=== PATIENT | female | born 1955 | race Caucasian/White ===

== ENCOUNTER 2018-02-26 12:24 | Inpatient (IN) | payer OTHER ==
[~2018-02-26] VITALS: Ht 175.3 cm; Wt 88.1 kg
[~2018-02-26 12:24] MED LIST: ALPRAZOLAM0.25 M1 PO; BUPROPION XL300 M1 PO; CIPRO250 M1 PO; FLAGYL500 MG PO; NEFAZODONE HCL100 M1 PO; PANTOPRAZOLE SO20 M1 PO; PERCOCET 5-3251 EACH PO; PERCOCET 7.5-31 EACH PO
[2018-02-26 13:15] LABS: ABSOLUTE BASOPHIL COUNT 0 /CUMM (0.0-0.2); ABSOLUTE EOSINOPHIL COUNT 0.3 /CUMM (0.0-0.7); ABSOLUTE GRANULOCYTE CT 4.9 /CUMM (1.4-6.5); ABSOLUTE LYMPH COUNT 1.2 /CUMM (1.2-3.4); ABSOLUTE MONOCYTE COUNT 0.5 /CUMM (0.10-0.60); BASOPHIL % 0.2 % (0.0-2.0); EOSINOPHIL % 3.7 % (0-5); GRANULOCYTE % 70.5 % (42.2-75.2); HEMATOCRIT 40.8 % (37-47); MEAN CORPUSCULAR HGB 31.9 PG (27.0-31.0); MEAN CORPUSCULAR HGB CONC 34.3 G/DL (33.0-37.0); MEAN CORPUSCULAR VOLUME 92.9 FL (81.0-99.0); MEAN PLATELET VOLUME 8.2 FL (7.4-10.4); PLATELET COUNT 191 /CUMM (130-400); RED BLOOD CELL CT 4.39 /CUMM (4.20-5.40); WHITE BLOOD CELL COUNT 6.9 /CUMM (4.8-10.8)
--- NOTE | 2018-02-26 14:15 | ED GI/GU/ABDOMINAL COMPLAINT ---
History of Present Illness General Chief Complaint: Abdominal Pain/Flank Pain Stated Complaint: ABD PAIN Source: patient Exam Limitations: no limitations Vital Signs & Intake/Output Vital Signs & Intake/Output Vital Signs Date Time Temp Pulse Resp B/P B/P Pulse O2 O2 Flow FiO2 Mean Ox Delivery Rate 02/26 1606 97.4 69 18 109/70 96 02/26 1302 98.0 77 22 123/81 97 Allergies Coded Allergies: Sulfa (Sulfonamide Antibiotics) (Intermediate, RASH 11/10/16) Reconcile Medications Alprazolam 0.25 MG TABLET 0.5 TAB PO QPM PRN SLEEP/PANIC ATTACKS (Reported) Bupropion HCl (Bupropion XL) 300 MG TAB.ER.24H 1 TAB PO QAM DEPRESSION ( Reported) Dicyclomine HCl 10 MG CAPSULE 1 CAP PO TID PRN GI (Reported) Nefazodone HCl 100 MG TABLET 3 TAB PO QHS ANXIETY/DEPRESSION (Reported) Pantoprazole Sodium 20 MG TABLET.DR 1 TAB PO DAILY AC GI (Reported) Triage Note: PER PT CO ABD PAIN DIFFUSE ACROSS ABD SINCE AM, NO NVD HX OF GI ISSUES TOOK BENTYL WITHOUT EFFECT APPEARS UNCOMF Triage Nurses Notes Reviewed? yes Duration: constant Timing: single episode today Severity Numbers: 8 Location: epigastric Radiation: no radiation HPI: Patient is a 62-year-old female with past medical history of diverticulitis, SBO , cholecystectomy and appendectomy performed remotely also states that she had a remote history of common bile duct removal at [facility] approximate 3 years ago and history of depression who presents emergency room seen at today patient was woken up with acute onset of nausea and severe epigastric pain Patient had minimal amounts of bowel movement today of brown pellets Patient hasn't tried by mouth challenge no vomiting today denies any fevers but does have chills denies any chest pain arm pain jaw pain (Mikhail FIORE,Zane) ? N Is pt currently ? No (Erica MCCARTHY,Reagan Brian) Past History Travel History Traveled to [place] past 21 day No Medical History Any Pertinent Medical History? see below for history Neurological: NONE EENT: NONE Cardiovascular: NONE Respiratory: NONE Gastrointestinal: pancreatitis Hepatic: NONE Renal: NONE Musculoskeletal: NONE Psychiatric: NONE Endocrine: NONE Surgical History Surgical History: appendectomy, cholecystectomy, Gómez-EN-y GASTRECTOMY, CBD REMOVAL Psychosocial History What is your primary language Polish Tobacco Use: Never used Family History Hx Contributory? No (Zane Dao) Review of Systems Review of Systems Constitutional: Reports: no symptoms. EENTM: Reports: no symptoms. Respiratory: Reports: no symptoms. Cardiovascular: Reports: no symptoms. GI: Reports: see HPI, abdominal pain, nausea. Genitourinary: Reports: no symptoms. Musculoskeletal: Reports: no symptoms. Skin: Reports: no symptoms. Neurological/Psychological: Reports: no symptoms. Hematologic/Endocrine: Reports: no symptoms. Immunologic/Allergic: Reports: no symptoms. All Other Systems: Reviewed and Negative (Zane Dao) Physical Exam Physical Exam General Appearance: mild distress Head: atraumatic Eyes: Bilateral: normal appearance. Ears, Nose, Throat, Mouth: moist mucous membrane Neck: normal inspection Respiratory: normal breath sounds, no respiratory distress Cardiovascular: regular rate/rhythm Gastrointestinal: normal bowel sounds, soft, EPIGASTRIC PAIN Extremities: normal range of motion Neurologic/Psych: no motor/sensory deficits, awake Core Measures ACS in differential dx? Yes Sepsis Present: No Sepsis Focused Exam Completed? No (Zane Dao) Progress Differential Diagnosis: AAA, AMI, biliary colic, bowel obstruction, colon cancer , cholecystitis, diverticulitis, endometritis, esophageal varices, gastritis, hepatitis, hernia, hemorrhoids, ischemic bowel, inflamm bowel dis, kidney stone, ovarian cyst, ovarian torsion, pancreatitis, PID/cervicitis, peptic ulcer, PUD/ GERD, perforated viscous, SBO, UTI/pyelo Diagnostic Imaging: Viewed by Me: CT Scan. Radiology Impression: acute abnormality Initial ED EKG: NOTED MULTIPLE ARTIFACTS 60 BPM Repeat EKG: unchanged (NSR 64 BPM) Comments: PATIENT: STEVE STEELE PRESENT AGE: 62 PATIENT ACCOUNT NO: [id number] : 54 LOCATION: [facility] ORDERING PHYSICIAN: Reagan Maldonado MD SERVICE DATE: 02/26/18 EXAM TYPE: CAT - CT ABD & PELVIS W IV CONTRAST EXAMINATION: CT ABDOMEN AND PELVIS WITH CONTRAST CLINICAL INFORMATION: Left lower quadrant pain. Evaluate for diverticulitis. COMPARISON: CT abdomen and pelvis most recent prior dated 11/10/2016 TECHNIQUE: Multidetector volumetric imaging was performed of the abdomen and pelvis following IV administration of 95 mL of Optiray 320 intravenous contrast. Sagittal and coronal reformatted images were obtained on the technologist's workstation. DLP: 533.48 mGy-cm FINDINGS: LUNG BASES: The visualized lung bases are unremarkable. LIVER, GALLBLADDER, AND BILIARY TREE: Normal hepatic enhancement. No focal abnormality. Status post cholecystectomy. Postoperative changes noted at the level of the gastric antrum. Pneumobilia. PANCREAS: Unremarkable. SPLEEN: Unremarkable. ADRENAL GLANDS: Unremarkable. KIDNEYS AND URETERS: The kidneys are normal in size, shape, and attenuation. No hydronephrosis, hydroureter, or calculi seen. Tiny low-attenuation cortical foci too small to be accurately characterized. No perinephric stranding. BLADDER: Unremarkable. GASTROINTESTINAL TRACT: Mildly distended stomach filled with food material and fluid. Postoperative changes noted at the level of the gastric antrum/gastroduodenal junction. Abnormal distention of the proximal jejunum with associated small bowel fecal sign . Surgical anastomosis noted in the right mid abdomen. Zone of transition appears to be at the level of the enteroenteric anastomosis (series 602 image 39-41 and series 2 image 52). There is mild haziness of the adjacent mesentery and mild prominence of the vasa rectae (series 602 image 37) Remaining small bowel loops appear to be normal in caliber. Colonic diverticulosis. No gross evidence of acute diverticulitis. ABDOMINAL WALL: No significant hernia is appreciated. LYMPH NODES: Stable mild prominence of the precaval lymph nodes (series 2 image 26) stable periaortic lymph nodes and small mesenteric nodes. No gross lymphadenopathy. VASCULAR: Unremarkable. PELVIC VISCERA: Small amount of free fluid noted in the pelvis. Small uterus. No gross ovarian or adnexal abnormality. OSSEOUS STRUCTURES: Mild scoliosis. Degenerative changes. Postoperative changes in 4-L5 level with posterior fusion. No acute osseous abnormality. IMPRESSION: 1. Postoperative changes as detailed. 2. Partial small bowel obstruction with distended proximal jejunum demonstrating small bowel fecal sign. Zone of transition is at the enteroenteric anastomosis right mid abdomen. Haziness and edema of the adjacent mesentery with prominence of the vasa rectae. 3. Colonic diverticulosis. No evidence of acute diverticulitis. 4. Postoperative changes also noted at the level of gastric antrum. Mildly distended stomach filled with food and fluid. 5. Chronic pneumobilia compatible with postoperative changes. Finding discussed with Dr. Maldonado at 4:00 PM on 02/26/2018.. DICTATED BY: Ricardo Perez MD DATE/TIME DICTATED:02/26/181540 INDUSTRIAL MAINTENANCE INSTRUCTOR:DOLLY DATE/TIME TRANSCRIBED:02/26/181540 CONFIDENTIAL, DO NOT COPY WITHOUT APPROPRIATE AUTHORIZATION. <Electronically signed in Other Vendor System> SIGNED BY: Ricardo Perez MD 02/26/18 1609 (Zane Dao) Plan of Care: Orders Procedure Date/time Status Nothing by Mouth 02/27 B Active Admit to inpatient 02/26 1739 Active EKG 02/26 172 Active Add-on Test (ER Only) 02/26 162 Active EKG 02/26 162 Active NGT 02/26 161 Active TROPONIN LEVEL 02/26 1310 Complete URINALYSIS 02/26 1303 Complete LIPASE 02/26 1303 Complete LACTIC ACID 02/26 130 Complete COMPREHENSIVE METABOLIC PANEL 02/26 130 Complete CBC WITHOUT DIFFERENTIAL 02/26 130 Complete AMYLASE 02/26 130 Complete Current Medications Sig/Humaira Start time Last Medication Dose Stop Time Status Admin Sodium Chloride 1,000 ML BOLUS ONE 02/26 171 AC 02/26 (Normal Saline 0.9%) 02/26 181 1718 Laboratory Tests 02/26/18 1603: Lactic Acid Cancelled 02/26/18 1320: Urinalysis MOD H, Urine Color YEL, Urine Clarity HAZY H, Urine pH 7.0, Ur Specific [place] 1.015, Urine Protein NEG, Urine Ketones NEG, Urine Nitrite NEG, Urine Bilirubin NEG, Urine Urobilinogen 0.2, Ur Leukocyte Esterase NEG, Ur Microscopic SEDIMENT EXAMINED, Ur Epithelial Cells FEW, Urine Bacteria FEW H, Urine Mucus MOD H, Urine Hemoglobin NEG, Urine Glucose NEG 02/26/18 1310: Anion Gap 12, Estimated GFR > 60, BUN/Creatinine Ratio 20.0, Glucose 105 H, Lactic Acid 0.9, Calcium 9.5, Total Bilirubin 0.7, AST 14, ALT 26, Alkaline Phosphatase 109, Troponin I < 0.01, Total Protein 6.6, Albumin 4.0, Globulin 2.6 , Albumin/Globulin Ratio 1.5, Amylase 44, Lipase 80, CBC w Diff NO MAN DIFF REQ, RBC 4.39, MCV 92.9, MCH 31.9 H, MCHC 34.3, RDW 13.0, MPV 8.2, Gran % 70.5, Lymphocytes % 17.8 L, Monocytes % 7.8, Eosinophils % 3.7, Basophils % 0.2, Absolute Granulocytes 4.9, Absolute Lymphocytes 1.2, Absolute Monocytes 0.5, Absolute Eosinophils 0.3, Absolute Basophils 0 Patient after morphine was administered initially had significant improvement of pain patient currently complains of 3/10 abdominal pain, CT scan was resulted showing critical findings of small bowel structures and discussed results with patient Patient was placed nothing by mouth (Zane Dao) (Reagan Maldonado MD) Departure Departure Disposition: STILL A PATIENT Condition: Guarded Clinical Impression Primary Impression: Small bowel obstruction Referrals: El MCCARTHY,Alfredo Coats (PCP/Family) Departure Forms: Customer Survey General Discharge Information Admission Note Spoke With: Jorge MCCARTHY,Hiren Keller Documentation of Exam: Documentation of any treatments & extenuating circumstances including Concerns Regarding Discharge (functional status, medication knowledge or non-compliance, living conditions, etc.) that warrant an admission rather than observation: [ Patient requires IV pain medication IV antiemetics IV fluids surgery consultation and possible surgical intervention] (Zane Dao) PA/BIOMETRICS CONSULTANT Co-Sign Statement Statement: ED Attending supervision documentation- [X] I saw and evaluated the patient. I have also reviewed all the pertinent lab results and diagnostic results. I agree with the findings and the plan of care as documented in the PA's/BIOMETRICS CONSULTANT's documentation. [X] I have reviewed the ED Record and agree with the PA's/BIOMETRICS CONSULTANT's documentation. [] Additions or exceptions (if any) to the PAs/BIOMETRICS CONSULTANT's note and plan are summarized below: [ADMITTO SURGERY, BOWEL REST, NGT, MAYREQUIRE SURGERY] (Reagan Maldonado MD) Critical Care Note Critical Care Note Critical Care Time: 75-104 min (Zane Dao)
[2018-02-26] MEDS ORDERED: DICYCLOMINE HCL10 M1 PO (15:27)
--- NOTE | 2018-02-26 16:09 | CT SCAN REPORT ---
EXAMINATION: CT ABDOMEN AND PELVIS WITH CONTRAST CLINICAL INFORMATION: Left lower quadrant pain. Evaluate for diverticulitis. COMPARISON: CT abdomen and pelvis most recent prior dated 11/10/2016 TECHNIQUE: Multidetector volumetric imaging was performed of the abdomen and pelvis following IV administration of 95 mL of Optiray 320 intravenous contrast. Sagittal and coronal reformatted images were obtained on the technologist's workstation. DLP: 533.48 mGy-cm FINDINGS: LUNG BASES: The visualized lung bases are unremarkable. LIVER, GALLBLADDER, AND BILIARY TREE: Normal hepatic enhancement. No focal abnormality. Status post cholecystectomy. Postoperative changes noted at the level of the gastric antrum. Pneumobilia. PANCREAS: Unremarkable. SPLEEN: Unremarkable. ADRENAL GLANDS: Unremarkable. KIDNEYS AND URETERS: The kidneys are normal in size, shape, and attenuation. No hydronephrosis, hydroureter, or calculi seen. Tiny low-attenuation cortical foci too small to be accurately characterized. No perinephric stranding. BLADDER: Unremarkable. GASTROINTESTINAL TRACT: Mildly distended stomach filled with food material and fluid. Postoperative changes noted at the level of the gastric antrum/gastroduodenal junction. Abnormal distention of the proximal jejunum with associated small bowel fecal sign . Surgical anastomosis noted in the right mid abdomen. Zone of transition appears to be at the level of the enteroenteric anastomosis (series 602 image 39-41 and series 2 image 52). There is mild haziness of the adjacent mesentery and mild prominence of the vasa rectae (series 602 image 37) Remaining small bowel loops appear to be normal in caliber. Colonic diverticulosis. No gross evidence of acute diverticulitis. ABDOMINAL WALL: No significant hernia is appreciated. LYMPH NODES: Stable mild prominence of the precaval lymph nodes (series 2 image 26) stable periaortic lymph nodes and small mesenteric nodes. No gross lymphadenopathy. VASCULAR: Unremarkable. PELVIC VISCERA: Small amount of free fluid noted in the pelvis. Small uterus. No gross ovarian or adnexal abnormality. OSSEOUS STRUCTURES: Mild scoliosis. Degenerative changes. Postoperative changes in 4-L5 level with posterior fusion. No acute osseous abnormality. IMPRESSION: 1. Postoperative changes as detailed. 2. Partial small bowel obstruction with distended proximal jejunum demonstrating small bowel fecal sign. Zone of transition is at the enteroenteric anastomosis right mid abdomen. Haziness and edema of the adjacent mesentery with prominence of the vasa rectae. 3. Colonic diverticulosis. No evidence of acute diverticulitis. 4. Postoperative changes also noted at the level of gastric antrum. Mildly distended stomach filled with food and fluid. 5. Chronic pneumobilia compatible with postoperative changes. Finding discussed with Dr. Maldonado at 4:00 PM on 02/26/2018..
--- NOTE | 2018-02-26 17:31 | History & Physical ---
Maxim Sung 02/26/18 4756: General Information and HPI MD Statement: I have seen and personally examined STEVE STEELE and documented this H&P. The patient is a 62 year old F who presented with a patient stated chief complaint of [abdominal pain]. Source of Information: patient Exam Limitations: no limitations History of Present Illness: 62-year-old female presents to the ER with abdominal pain that started at 7 AM this morning she is colicky in nature, central epigastric region and occasionally radiating into the back, associated with nausea without vomiting. 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 Her abdominal pain is similar to her previous small bowel obstruction. It is moderate to severe, crampy in nature. She has not vomited. Over the past several months she has been having problems with her bowels, having bouts of constipation alternating with loose stool, and significant flatulence without belching or vomiting, associated with lower abdominal cramping pain which at times is severe. She has been seen by her nail setter for this [place] who recommended Linzess however due potential side effects, she decided not to take this. The pain became so great she had to go to the ER for treatment, CT scan was ordered which showed a small bowel obstruction and surgery was consulted for further evaluation and management. She has also had a previous ERCP was things are out of a due to her excessive flatulence and fatty mucousy stool in 2014. Allergies/Medications Allergies: Coded Allergies: Sulfa (Sulfonamide Antibiotics) (Intermediate, RASH 11/10/16) Home Med list Alprazolam 0.25 MG TABLET 0.5 TAB PO QPM PRN SLEEP/PANIC ATTACKS (Reported) Bupropion HCl (Bupropion XL) 300 MG TAB.ER.24H 1 TAB PO QAM DEPRESSION ( Reported) Dicyclomine HCl 10 MG CAPSULE 1 CAP PO TID PRN GI (Reported) Nefazodone HCl 100 MG TABLET 3 TAB PO QHS ANXIETY/DEPRESSION (Reported) Pantoprazole Sodium 20 MG TABLET.DR 1 TAB PO DAILY AC GI (Reported) Past History Travel History Traveled to [place] past 21 day No Medical History Neurological: NONE EENT: NONE Cardiovascular: NONE Respiratory: NONE Gastrointestinal: pancreatitis, small bowel obstruction Hepatic: NONE Renal: NONE Musculoskeletal: NONE Psychiatric: NONE Endocrine: NONE Surgical History Surgical History: appendectomy, cholecystectomy, Gómez-EN-y gastrojejunectomy . sphincter of OD sphincterotomy with ERCP Past Family/Social History Functional Ability ADLs Independent: dressing, eating, toileting, bathing. Review of Systems Review of Systems Constitutional: Reports: see HPI. Comments Review of systems: See HPI, all other systems negative. Constitutional: No chills fever or weight loss HEENT: No visual changes no sore throat no congestion Cardiovascular: No chest pain ,palpitation , orthopnea or ankle swelling Skin: No jaundice no rashes Respiratory: No dyspnea cough sputum or hemoptysis GI: See HPI : No dysuria no hematuria Musclulo skeletal: No back pain no neck pain, Neurologic: No numbness no confusion Psych: No stress anxiety or depression,. Heme/endocrine: No bruising no bleeding no polyuria or polydipsia Immunology: No splenectomy or history of AIDS Exam & Diagnostic Data Last 24 Hrs of Vital Signs/I&O Vital Signs Date Time Temp Pulse Resp B/P B/P Pulse O2 O2 Flow FiO2 Mean Ox Delivery Rate 02/26 1606 97.4 69 18 109/70 96 04/ 1302 98.0 77 22 123/81 97 Intake & Output 04/ 1600 04/05 0800 04/05 0000 Intake Total 10 Output Total Balance 10 Intake, IV 10 Patient 200 lb Weight Physical Exam General Appearance Alert, Oriented X3, Cooperative, Mild Distress Skin No Rashes, No Breakdown, No Significant Lesion Skin Temp/Moisture Exam: Warm/Dry Sepsis Skin Exam (color): Normal for Ethnicity HEENT Atraumatic, PERRLA, EOMI, mucous membranes dry Neck Supple, No JVD Cardiovascular Regular Rate, Normal S1, Normal S2, No Murmurs Lungs Clear to Auscultation, Normal Air Movement Abdomen Soft, well-healed right upper quadrant and midline surgical abdominal scar, minimal distention, mild tympani, no bowel sounds, tenderness in the epigastrium and midabdominal region, no significant lower abdominal tenderness Neurological Normal Gait, Normal Speech Extremities No Clubbing, No Cyanosis, No Edema, Normal Pulses, No Tenderness/ Swelling Last 24 Hrs of Labs/Chad: Laboratory Tests 02/26/18 1603: Lactic Acid Cancelled 02/26/18 1320: Urinalysis MOD H, Urine Color YEL, Urine Clarity HAZY H, Urine pH 7.0, Ur Specific [place] 1.015, Urine Protein NEG, Urine Ketones NEG, Urine Nitrite NEG, Urine Bilirubin NEG, Urine Urobilinogen 0.2, Ur Leukocyte Esterase NEG, Ur Microscopic SEDIMENT EXAMINED, Ur Epithelial Cells FEW, Urine Bacteria FEW H, Urine Mucus MOD H, Urine Hemoglobin NEG, Urine Glucose NEG 02/26/18 1310: Anion Gap 12, Estimated GFR > 60, BUN/Creatinine Ratio 20.0, Glucose 105 H, Lactic Acid 0.9, Calcium 9.5, Total Bilirubin 0.7, AST 14, ALT 26, Alkaline Phosphatase 109, Troponin I < 0.01, Total Protein 6.6, Albumin 4.0, Globulin 2.6 , Albumin/Globulin Ratio 1.5, Amylase 44, Lipase 80, CBC w Diff NO MAN DIFF REQ, RBC 4.39, MCV 92.9, MCH 31.9 H, MCHC 34.3, RDW 13.0, MPV 8.2, Gran % 70.5, Lymphocytes % 17.8 L, Monocytes % 7.8, Eosinophils % 3.7, Basophils % 0.2, Absolute Granulocytes 4.9, Absolute Lymphocytes 1.2, Absolute Monocytes 0.5, Absolute Eosinophils 0.3, Absolute Basophils 0 Diagnostic Data Other Results PATIENT: STEVE STEELE PRESENT AGE: 62 PATIENT ACCOUNT NO: [id number] : 54 LOCATION: [facility] ORDERING PHYSICIAN: Reagan Maldonado MD SERVICE DATE: 02/26/18 EXAM TYPE: CAT - CT ABD & PELVIS W IV CONTRAST EXAMINATION: CT ABDOMEN AND PELVIS WITH CONTRAST CLINICAL INFORMATION: Left lower quadrant pain. Evaluate for diverticulitis. COMPARISON: CT abdomen and pelvis most recent prior dated 11/10/2016 TECHNIQUE: Multidetector volumetric imaging was performed of the abdomen and pelvis following IV administration of 95 mL of Optiray 320 intravenous contrast. Sagittal and coronal reformatted images were obtained on the technologist's workstation. DLP: 533.48 mGy-cm FINDINGS: LUNG BASES: The visualized lung bases are unremarkable. LIVER, GALLBLADDER, AND BILIARY TREE: Normal hepatic enhancement. No focal abnormality. Status post cholecystectomy. Postoperative changes noted at the level of the gastric antrum. Pneumobilia. PANCREAS: Unremarkable. SPLEEN: Unremarkable. ADRENAL GLANDS: Unremarkable. KIDNEYS AND URETERS: The kidneys are normal in size, shape, and attenuation. No hydronephrosis, hydroureter, or calculi seen. Tiny low-attenuation cortical foci too small to be accurately characterized. No perinephric stranding. BLADDER: Unremarkable. GASTROINTESTINAL TRACT: Mildly distended stomach filled with food material and fluid. Postoperative changes noted at the level of the gastric antrum/gastroduodenal junction. Abnormal distention of the proximal jejunum with associated small bowel fecal sign . Surgical anastomosis noted in the right mid abdomen. Zone of transition appears to be at the level of the enteroenteric anastomosis (series 602 image 39-41 and series 2 image 52). There is mild haziness of the adjacent mesentery and mild prominence of the vasa rectae (series 602 image 37) Remaining small bowel loops appear to be normal in caliber. Colonic diverticulosis. No gross evidence of acute diverticulitis. ABDOMINAL WALL: No significant hernia is appreciated. LYMPH NODES: Stable mild prominence of the precaval lymph nodes (series 2 image 26) stable periaortic lymph nodes and small mesenteric nodes. No gross lymphadenopathy. VASCULAR: Unremarkable. PELVIC VISCERA: Small amount of free fluid noted in the pelvis. Small uterus. No gross ovarian or adnexal abnormality. OSSEOUS STRUCTURES: Mild scoliosis. Degenerative changes. Postoperative changes in 4-L5 level with posterior fusion. No acute osseous abnormality. IMPRESSION: 1. Postoperative changes as detailed. 2. Partial small bowel obstruction with distended proximal jejunum demonstrating small bowel fecal sign. Zone of transition is at the enteroenteric anastomosis right mid abdomen. Haziness and edema of the adjacent mesentery with prominence of the vasa rectae. 3. Colonic diverticulosis. No evidence of acute diverticulitis. 4. Postoperative changes also noted at the level of gastric antrum. Mildly distended stomach filled with food and fluid. 5. Chronic pneumobilia compatible with postoperative changes. Finding discussed with Dr. Maldonado at 4:00 PM on 02/26/2018.. DICTATED BY: Ricardo Perez MD DATE/TIME DICTATED:04/051540 IT DIRECTOR:DOLLY DATE/TIME TRANSCRIBED:02/26/181540 Assessment/Plan Assessment: Patient has a small bowel obstruction She requires admission to the hospital, nothing by mouth, IV fluids, IV antiemetics, pain medication as needed, bowel rest, NG tube, ambulation, monitoring for return of bowel function. If she does not improve, she could potentially require surgical intervention for lysis of adhesion. Discussed with Dr. Patel. As Ranked By This Provider Problem List: 1. Small bowel obstruction Core Measures/Misc (08/10) Acute Coronary Syndrome ACS Diagnosis: No Congestive Heart Failure Congestive Heart Failure Diagnosis No Cerebrovascular Accident CVA/TIA Diagnosis: No VTE (View Protocol) VTE Risk Factors Age>40 No Mechanical VTE Prophylaxis d/t N/A MechProphylax Ordered No VTE Pharm Prophylaxis d/t NA PharmProphylax ordered Sepsis (View protocol) Sepsis Present: No Hiren Patel MD 02/27/18 0847: Attending MD Review Statement Attending Statement Attending MD Statement: examined this patient, discuss w/resident/PA/MASTER BAKER, reviewed images Attending Assessment/Plan: 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 PLan ng tube decompression followed by gastrograffin instillation.
--- NOTE | 2018-02-26 17:43 | Admission Core Measures ---
Acute Coronary Syndrome (CM) ACS Core Measures Acute Coronary Syndrome Diagnosis No Congestive Heart Failure (NEW) CHF Core Measures Congestive Heart Failure Diagnosis No Cerebrovascular Accident (NEW) CVA Core Measures CVA/TIA Diagnosis No Venous Thromboembolism VTE Core Pancho (View Protocol) VTE Risk Factors Age>40 No Mechanical VTE Prophylaxis d/t N/A MechProphylax Ordered No VTE Pharm Prophylaxis d/t NA PharmProphylax ordered Problem List As ranked by this Provider includes Assessment & Plan 1. Small bowel obstruction HOME MEDS Home Med List Alprazolam 0.25 MG TABLET 0.5 TAB PO QPM PRN SLEEP/PANIC ATTACKS (Reported) Bupropion HCl (Bupropion XL) 300 MG TAB.ER.24H 1 TAB PO QAM DEPRESSION ( Reported) Dicyclomine HCl 10 MG CAPSULE 1 CAP PO TID PRN GI (Reported) Nefazodone HCl 100 MG TABLET 3 TAB PO QHS ANXIETY/DEPRESSION (Reported) Pantoprazole Sodium 20 MG TABLET.DR 1 TAB PO DAILY AC GI (Reported)
[2018-02-26 22:35] VITALS: BP 124/68
[2018-02-27 01:00] VITALS: BP 110/68
[2018-02-27 03:02] VITALS: BP 108/62
[2018-02-27 05:05] VITALS: BP 104/68
[2018-02-27 07:49] VITALS: BP 100/60
[2018-02-27 08:06] LABS: ABSOLUTE BASOPHIL COUNT 0 /CUMM (0.0-0.2); ABSOLUTE EOSINOPHIL COUNT 0.2 /CUMM (0.0-0.7); ABSOLUTE GRANULOCYTE CT 4.2 /CUMM (1.4-6.5); ABSOLUTE LYMPH COUNT 1.4 /CUMM (1.2-3.4); ABSOLUTE MONOCYTE COUNT 0.7 /CUMM (0.10-0.60); BASOPHIL % 0.4 % (0.0-2.0); EOSINOPHIL % 3.7 % (0-5); GRANULOCYTE % 63.6 % (42.2-75.2); HEMATOCRIT 40.3 % (37-47); MEAN CORPUSCULAR HGB 32.3 PG (27.0-31.0); MEAN PLATELET VOLUME 8.7 FL (7.4-10.4); PLATELET COUNT 171 /CUMM (130-400); RBC DISTRIBUTION WIDTH 13.1 % (11.5-14.5); RED BLOOD CELL CT 4.24 /CUMM (4.20-5.40); WHITE BLOOD CELL COUNT 6.6 /CUMM (4.8-10.8)
--- NOTE | 2018-02-27 08:55 | PN- General Surgery ---
See Addendum Subjective Subjective: Patient admitted overnight for SBO. NGT placed by overnight surgical PA in ED using nasoscope. Patient states she felt immediate relief once NGT was placed. Passing a 'small' amount of flatus, but comments that it is nothing compared to normal. No BM yet. Ambulating with assistance. Gastrograffin administered at 4:30 am, awaiting abdominal Xray at 10:00 am. Objective Vital Signs and I&Os Vital Signs Date Time Temp Pulse Resp B/P B/P Pulse O2 O2 Flow FiO2 Mean Ox Delivery Rate 02/27 0749 97.5 63 20 100/60 95 Room Air 04/06 0505 98.0 69 18 104/68 98 04/06 0302 98.2 64 18 108/62 94 04/06 0100 98.4 66 18 110/68 93 04/05 2235 97.9 66 18 124/68 95 Room Air 04/05 2148 97.0 70 20 132/68 97 Room Air 04/05 1835 97.1 69 18 121/70 96 04/05 1606 97.4 69 18 109/70 96 04/05 1302 98.0 77 22 123/81 97 Intake & Output 02/27 1600 04/06 0800 04/06 0000 04/05 1600 / 0800 04/05 0000 Intake Total 1800 10 Output Total 225 25 Balance 1575 -25 10 Intake, IV 600 10 Intake, Oral 1200 Output, 225 25 Gastric Drainage Patient 194 lb 200 lb Weight Weight Bed scale Measurement Method Physical Exam: Gen: AAOx3 in NAD Cor: S1+S2+ Lungs: CTA beth Abd: soft, NT, ND, scant BS auscultated. RUQ incisions well healed. Ext: no edema or calf tenderness to beth lower extremities. Current Medications: Current Medications Sig/Humaira Start time Last Medication Dose Route Stop Time Status Admin Acetaminophen 1,000 MG Q6P PRN 02/26 1745 AC IV Alprazolam 0.5 MG TID PRN 02/26 1830 AC PO 03/05 1829 Bupropion HCl 300 MG DAILY 02/27 1000 AC 02/27 PO 0844 Heparin Sodium 0 .STK-MED ONE 02/26 2123 DC (Porcine) .ROUTE Heparin Sodium 5,000 UNIT Q8 02/26 1752 AC 02/27 (Porcine) SC 0519 Lidocaine 0 .STK-MED ONE 02/26 1839 DC TOP Morphine Sulfate 6 MG ONCE ONE 02/26 1945 DC 02/26 IV 02/26 194 1948 Morphine Sulfate 0 .STK-MED ONE 02/26 194 DC .ROUTE Morphine Sulfate 2 MG Q2P PRN 02/26 174 AC IV Morphine Sulfate 4 MG Q2P PRN 02/26 174 AC IV Morphine Sulfate 0 .STK-MED ONE 02/26 1643 DC .ROUTE Morphine Sulfate 2 MG ONCE ONE 02/26 1630 DC 02/26 IV 02/26 1631 1712 Morphine Sulfate 0 .STK-MED ONE 02/26 1534 DC .ROUTE Morphine Sulfate 4 MG ONCE ONE 02/26 1530 DC 02/26 IV 02/26 1531 1537 Nefazodone HCl 300 MG ONCE ONE 02/26 194 DC 02/26 PO 02/26 1946 2303 Ondansetron HCl 4 MG Q6P PRN 02/26 174 AC IV Ondansetron HCl 4 MG ONCE ONE 02/26 171 DC 02/26 IV 02/26 171 1712 Ondansetron HCl 0 .STK-MED ONE 02/26 171 DC .ROUTE Ondansetron HCl 0 .STK-MED ONE 02/26 1534 DC .ROUTE Ondansetron HCl 4 MG ONCE ONE 02/26 1515 DC 02/26 IV 02/26 1516 1537 Pantoprazole Sodium 0 .STK-MED ONE 02/26 2123 DC IV Pantoprazole Sodium 40 MG DAILY 02/26 1751 AC 02/27 IV 0844 Potassium Chloride 20 MEQ .Q8H 02/26 1745 AC 02/27 Dextrose/Sodium 1,000 ML IV 0853 Chloride Promethazine HCl 12.5 MG Q6P PRN 02/26 174 AC IV 03/05 174 Sodium Chloride 1,000 ML BOLUS ONE 02/26 171 DC 02/26 IV 02/26 1814 1718 Results Last 48 Hours of Labs: Laboratory Tests 02/27 02/26 0645 1603 Chemistry Sodium (137 - 145 mmol/L) 141 Potassium (3.5 - 5.1 mmol/L) 3.9 Chloride (98 - 107 mmol/L) 104 Carbon Dioxide (22 - 30 mmol/L) 28 Anion Gap (5 - 16) 9 BUN (7 - 17 mg/dL) 12 Creatinine (0.5 - 1.0 mg/dL) 0.7 Estimated GFR (>60 ml/min) > 60 BUN/Creatinine Ratio (7 - 25 %) 17.1 Lactic Acid Cancelled Hematology CBC w Diff NO MAN DIFF REQ WBC (4.8 - 10.8 /CUMM) 6.6 RBC (4.20 - 5.40 /CUMM) 4.24 Hgb (12.0 - 16.0 G/DL) 13.7 Hct (37 - 47 %) 40.3 MCV (81.0 - 99.0 FL) 95.0 MCH (27.0 - 31.0 PG) 32.3 H MCHC (33.0 - 37.0 G/DL) 34.0 RDW (11.5 - 14.5 %) 13.1 Plt Count (130 - 400 /CUMM) 171 MPV (7.4 - 10.4 FL) 8.7 Gran % (42.2 - 75.2 %) 63.6 Lymphocytes % (20.5 - 51.1 %) 21.1 Monocytes % (1.7 - 9.3 %) 11.2 H Eosinophils % (0 - 5 %) 3.7 Basophils % (0.0 - 2.0 %) 0.4 Absolute Granulocytes (1.4 - 6.5 /CUMM) 4.2 Absolute Lymphocytes (1.2 - 3.4 /CUMM) 1.4 Absolute Monocytes (0.10 - 0.60 /CUMM) 0.7 H Absolute Eosinophils (0.0 - 0.7 /CUMM) 0.2 Absolute Basophils (0.0 - 0.2 /CUMM) 0 02/26 02/26 1320 1310 Chemistry Sodium (137 - 145 mmol/L) 144 Potassium (3.5 - 5.1 mmol/L) 4.1 Chloride (98 - 107 mmol/L) 107 Carbon Dioxide (22 - 30 mmol/L) 25 Anion Gap (5 - 16) 12 BUN (7 - 17 mg/dL) 12 Creatinine (0.5 - 1.0 mg/dL) 0.6 Estimated GFR (>60 ml/min) > 60 BUN/Creatinine Ratio (7 - 25 %) 20.0 Glucose (65 - 99 mg/dL) 105 H Lactic Acid (0.7 - 2.1 mmol/L) 0.9 Calcium (8.4 - 10.2 mg/dL) 9.5 Total Bilirubin (0.2 - 1.3 mg/dL) 0.7 AST (14 - 36 U/L) 14 ALT (9 - 52 U/L) 26 Alkaline Phosphatase (<127 U/L) 109 Troponin I (< 0.11 ng/ml) < 0.01 Total Protein (6.3 - 8.2 g/dL) 6.6 Albumin (3.5 - 5.0 g/dL) 4.0 Globulin (1.9 - 4.2 gm/dL) 2.6 Albumin/Globulin Ratio (1.1 - 2.2 %) 1.5 Amylase (30 - 110 U/L) 44 Lipase (23 - 300 U/L) 80 Hematology CBC w Diff NO MAN DIFF REQ WBC (4.8 - 10.8 /CUMM) 6.9 RBC (4.20 - 5.40 /CUMM) 4.39 Hgb (12.0 - 16.0 G/DL) 14.0 Hct (37 - 47 %) 40.8 MCV (81.0 - 99.0 FL) 92.9 MCH (27.0 - 31.0 PG) 31.9 H MCHC (33.0 - 37.0 G/DL) 34.3 RDW (11.5 - 14.5 %) 13.0 Plt Count (130 - 400 /CUMM) 191 MPV (7.4 - 10.4 FL) 8.2 Gran % (42.2 - 75.2 %) 70.5 Lymphocytes % (20.5 - 51.1 %) 17.8 L Monocytes % (1.7 - 9.3 %) 7.8 Eosinophils % (0 - 5 %) 3.7 Basophils % (0.0 - 2.0 %) 0.2 Absolute Granulocytes (1.4 - 6.5 /CUMM) 4.9 Absolute Lymphocytes (1.2 - 3.4 /CUMM) 1.2 Absolute Monocytes (0.10 - 0.60 /CUMM) 0.5 Absolute Eosinophils (0.0 - 0.7 /CUMM) 0.3 Absolute Basophils (0.0 - 0.2 /CUMM) 0 Urines Urinalysis MOD H Urine Color (YEL,AMB,STR) YEL Urine Clarity (CLEAR) HAZY H Urine pH (5.0 - 8.0) 7.0 Ur Specific [place] (1.001 - 1.035) 1.015 Urine Protein (NEG,<30 MG/DL) NEG Urine Ketones (NEG) NEG Urine Nitrite (NEG) NEG Urine Bilirubin (NEG) NEG Urine Urobilinogen (0.1 - 1.0 EU/dl) 0.2 Ur Leukocyte Esterase (NEG) NEG Ur Microscopic SEDIMENT EXAMINED Ur Epithelial Cells (NONE,FEW) FEW Urine Bacteria (NEG/NONE) FEW H Urine Mucus (FEW,NONE) MOD H Urine Hemoglobin (NEG) NEG Urine Glucose (N MG/DL) NEG Assessment/Plan Assessment/Plan A: HD #1 with SBO (hx appendectomy/cholecystectomy/bile duct exploration for common bile duct cysts- performed at [facility]); Gastrograffin administered at 4:30 am awaiting abd xray Plan: F/U abd xray at 10:30 am Further recommendations to follow. Continue NGT to suction. Can take off for oral medication administration. OOB and ambulate as tolerated. Please document urine output. Core Measures Venous Thromboembolism VTE Risk Factors Age>40 No Mechanical VTE Prophylaxis d/t N/A MechProphylax Ordered No VTE Pharm Prophylaxis d/t NA PharmProphylax ordered
--- NOTE | 2018-02-27 11:39 | RADIOLOGY REPORT ---
EXAMINATION: XR ABDOMEN MULTIPLE VIEWS CLINICAL INDICATION: Small bowel obstruction COMPARISON: 02/26/2018 TECHNIQUE: 2 views of the abdomen. Patient was reportedly given Gastroview approximately 6 hours earlier. FINDINGS: No evidence of intra-abdominal free air. Contrast material is present throughout the colon. There is a short segment of dilated small bowel in the central abdomen, which could reflect a degree of residual or partial obstruction. Cholecystectomy clips are identified in right upper quadrant. Nasogastric tube tip terminates in the proximal stomach. Fusion hardware is noted in the lower lumbar spine. The lung bases are well aerated. IMPRESSION: Contrast material is present throughout the colon, which argues against significant high-grade small bowel obstruction, though there is a short segment of gas-filled dilated small bowel in the central abdomen which could reflect residual or partial obstruction.
[2018-02-27 14:13] VITALS: BP 100/60
[2018-02-27 22:22] VITALS: BP 104/68
[2018-02-28 06:58] VITALS: BP 103/52
--- NOTE | 2018-02-28 08:49 | Patient Discharge Instructions ---
Discharge Instructions General Discharge Information You were seen/treated for: Small bowel obstruction You had these procedures: Conservative management with bowel rest, nasogastric tube decompression, and IV fluids. Watch for these problems: Nausea, vomiting, abdominal pain Diet Continue normal diet: Yes Activity Full Activity/No Limits: No Activity Self Limited: Yes Other activity limits: Avoid strenuous activity this week to allow your body to rest. After that you may advance her activity levels as per your comfort. Acute Coronary Syndrome Inclusion Criteria At DC or during hospital stay patient has or had the following: ACS DIAGNOSIS No Discharge Core Measures Meds if any: Prescribed or Continued at Discharge Meds if any: NOT Prescribed or Continued at Discharge Congestive Heart Failure Inclusion Criteria At DC or during hospital stay patient has or had the following: CHF DIAGNOSIS No Discharge Core Measures Meds if any: Prescribed or Continued at Discharge Meds if any: NOT Prescribed or Continued at Discharge Cerebrovascular accident Inclusion Criteria At DC or during hospital stay patient has or had the following: CVA/TIA Diagnosis No Discharge Core Measures Meds if any: Prescribed or Continued at Discharge Meds if any: NOT Prescribed or Continued at Discharge Venous thromboembolism Inclusion Criteria VTE Diagnosis No VTE Type NONE VTE Confirmed by (Test) NONE Discharge Core Measures - Per Current guidelines, there needs to be overlap - treatment for the first 5 days of Warfarin therapy. - If discharged on Warfarin prior to 5 days of - overlap therapy, the patient will need to be - assessed for post discharge needs including - *Post discharge parental anticoagulation - *Warfarin and/or parental anticoagulation education - *Follow up date to check INR post discharge At least 5 days overlap therapy as Inpatient No Meds if any: Prescribed or Continued at Discharge Note: Overlap Therapy is Warfarin and Anticoagulant Meds if any: NOT Prescribed or Continued at Discharge
--- NOTE | 2018-02-28 08:53 | PN- General Surgery ---
Subjective Subjective: Patient has no major complaints this morning. Overall she is feeling much better and reports significant improvement in her symptoms. She admits to minor intermittent abdominal soreness, but No further nausea or vomiting. She is tolerating clear liquids and moving her bowels. Positive diarrhea, which is expected. Objective Vital Signs and I&Os Vital Signs Date Time Temp Pulse Resp B/P B/P Pulse O2 O2 Flow FiO2 Mean Ox Delivery Rate 02/28 0658 97.4 60 18 103/52 98 Room Air 02/27 2222 98.0 61 20 104/68 94 Room Air 02/27 1413 97.5 63 20 100/60 96 Room Air 02/27 1135 Room Air Room Air Intake & Output 02/28 1600 02/28 0800 02/28 0000 02/27 1600 02/27 0800 02/27 0000 Intake Total 250 026 224 9920 Output Total 375 650 625 25 Balance -125 70 975 1175 -25 Intake, IV 10 625 600 Intake, Oral 240 120 140 8854 Number 0 2 1 Bowel Movements Output, 225 25 Gastric Drainage Output, Urine 375 650 400 Patient 194 lb Weight Weight Bed scale Measurement Method Physical Exam: Gen.: Patient is awake and alert. No acute distress. Cardiac: Regular Pulmonary: Lungs are bilaterally. Abdomen: Soft and nondistended. There is mild tenderness in the epigastric and left upper quadrant areas, but it is only elicited with deep palpation. Normoactive bowel sounds were heard. No guarding, tenderness, or rigidity appreciated. Assessment/Plan Assessment/Plan Patient is a 62-year-old female with a history of depression and multiple abdominal surgeries, who is now hospital day #3 from a small bowel obstruction, which has resolved with conservative management. Plan: -Advance diet to regular. Patient tolerates, she can be discharged home later today. This was discussed with Dr. Patel and he is in agreement with the plan. Patient may follow-up with him if symptoms persist at home. Core Measures Venous Thromboembolism VTE Risk Factors Age>40 No Mechanical VTE Prophylaxis d/t N/A MechProphylax Ordered No VTE Pharm Prophylaxis d/t NA PharmProphylax ordered
[2018-02-28 14:39] VITALS: BP 130/66
== END 2018-02-28 15:40 | DRG 390 ==
LOC: ERH 12:24 → 2NB 17:53 → ERHI 17:53 → ENRESERV 19:09 → ENTRNSPT 21:54 → EDTRNSPTSTS 22:02 → 2NB 22:17 → CMPTRNSPT 22:29 → ENPENDDIS 02-28 08:59 → 2NB 02-28 15:40
PROVIDERS: Emergency Medicine; Physician Assistant Surgical
DX: K56.600 Partial intestinal obstruction, unspecified as to cause (principal); F32.9 Major depressive disorder, single episode, unspecified; K57.30 Diverticulosis of large intestine without perforation or abscess without bleeding; Z90.49 Acquired absence of other specified parts of digestive tract; Z98.890 Other specified postprocedural states; Z98.0 Intestinal bypass and anastomosis status; Z88.2 Allergy status to sulfonamides
CPT/HCPCS: 2NSBP; 36415; 74021; 74177; 81001; 82436; 93005; 93010; 96374; 96375; 96376; J0131; J1644; J2405; J2550; J7042

== ENCOUNTER 2018-06-21 18:01 | Emergency (ER) | payer OTHER ==
[~2018-06-21] VITALS: Ht 172.7 cm; Wt 87.5 kg
[~2018-06-21 18:01] MED LIST changes: +DICYCLOMINE HCL10 M1 PO
[2018-06-21 18:13] VITALS: BP 108/71
--- NOTE | 2018-06-21 19:34 | RADIOLOGY REPORT ---
EXAMINATION: XR LUMBAR SPINE CLINICAL INFORMATION: Pain after lifting COMPARISON: None TECHNIQUE: Frontal lateral and coned-down L5-S1 frontal lateral FINDINGS: Five [id number] lumbar vertebrae were identified maintaining normal height and alignments. Posterior fusion of L4 on L5 with rods and screws remain in place properly positioned. No radiographic evidence of device failure. Narrowing of intervertebral disc spaces suggest underlying degenerative disc disease. Paravertebral soft tissues are unremarkable. There is superimposed bowel gas. No radiographic evidence of osteolytic or osteoblastic lesions. IMPRESSION: 1. No fractures. 2. Degenerative disc disease at all levels. 3. Hardware posterior fusion L5-S1 in place properly positioned. No radiographic evidence of device failure.
--- NOTE | 2018-06-21 20:32 | ED NECK/BACK PAIN COMPLAINT ---
History of Present Illness General Chief Complaint: Low Back Pain/Injury Stated Complaint: LOWER BACK PAIN Source: patient Exam Limitations: no limitations Vital Signs & Intake/Output Vital Signs & Intake/Output ED Intake and Output 06/22 0000 06/21 1200 Intake Total Output Total Balance Patient 193 lb Weight Weight Reported by Patient Measurement Method Allergies Coded Allergies: Sulfa (Sulfonamide Antibiotics) (Intermediate, RASH 11/10/16) Reconcile Medications Alprazolam 0.25 MG TABLET 0.5 TAB PO QPM PRN SLEEP/PANIC ATTACKS (Reported) Bupropion HCl (Bupropion XL) 300 MG TAB.ER.24H 1 TAB PO QAM DEPRESSION ( Reported) Dicyclomine HCl 10 MG CAPSULE 1 CAP PO TID PRN GI (Reported) Nefazodone HCl 100 MG TABLET 3 TAB PO QHS ANXIETY/DEPRESSION (Reported) Oxycodone HCl/Acetaminophen (Percocet 10-325 MG Tablet) 10 MG-325 MG TABLET 1 TAB PO BID PRN pain Pantoprazole Sodium 20 MG TABLET.DR 1 TAB PO DAILY AC GI (Reported) Triage Note: 62F REPORTS SHE LIFTED A VERY HEAVY BUCKET ON FRIDAY, AND NOW HAS SEVERE LBP. TOOK LEFTOVER PERCOCET 10MG FRI, SAT, FRIDAY BUT PAIN IS WORSENING. PT HAS DIFFICULTY WALKING, UNABLE TO BEND FOREWARD. HX RUPTURED DISCS L4-L5 W FUSION IN 2003. DENIES NUMBNESS/PARASTHESIAS Triage Nurses Notes Reviewed? yes Onset: Gradual Duration: day(s): Timing: recent history Quality/Severity: severe Location: lumbar spine, paraspinous muscles Context: lifting Loss of Consciousness: no loss of consciousness HPI: 62-year-old female with history of prior lumbar fusion presents emergency department complaining of worsening low back pain for the past few days. Patient states that a couple days ago she lifted a heavy bucket and after lifting she felt gradually worsening low back pain. Low back pain described as bilateral without radiation. Patient states pain is worse when she walks or bends forward. Patient denies fall or other injury. She denies numbness, tingling, urinary incontinence. (Airam FIORE,Chana Strauss) Past History Travel History Traveled to [place] past 21 day No Medical History Any Pertinent Medical History? 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 sphincter of OD sphincterotomy with ERCP Psychosocial History Who do you live with Brother Services at Home None What is your primary language Indian Tobacco Use: Current Daily Use Daily Tobacco Use Amount/Type: => 5 Cigarettes daily Family History Hx Contributory? No (Chana Hunt) Review of Systems Review of Systems Constitutional: Reports: no symptoms. Eyes: Reports: no symptoms. Ears, Nose, Throat, Mouth: Reports: no symptoms. Respiratory: Reports: no symptoms. Cardiovascular: Reports: no symptoms. Gastrointestinal/Abdominal: Reports: no symptoms. Musculoskeletal: Reports: see HPI. Skin: Reports: no symptoms. Neurological/Psychological: Reports: no symptoms. All Other Systems: Reviewed and Negative (Chana Hunt) Physical Exam Physical Exam General Appearance: well developed/nourished, no apparent distress, alert, awake Head: atraumatic, normal appearance Eyes: Bilateral: normal appearance. Ears, Nose, Throat, Mouth: hearing grossly normal Neck: normal inspection, supple, full range of motion Respiratory: no respiratory distress Back: normal inspection, normal range of motion, no vertebral tenderness, bilateral lower back tenderness, no CVA tenderness, no gross deformity Extremities: normal range of motion Straight Leg Raising: Right: Pain at ____ degrees (30). Left: Pain at ____ degrees (30). Neurologic/Psych: awake, alert, oriented x 3, strength 5/5 equal bilateral lower extremities Skin: intact, normal color, warm/dry Core Measures CVA/TIA Diagnosis: No (Chana Hunt) Progress Differential Diagnosis: cauda equina syn, herniated disc, myofascial strain, pyelo/UTI, sciatica, spinal cord inj, T/L spine injury, ureterolithiasis Plan of Care: Patient's x-ray shows stable degenerative changes, no acute findings. Patient offered CT imaging however she declines. Patient informed that she will likely require an MRI for further evaluation of her lumbar spine. She is sitting in stretcher in no acute distress. Patient is requesting Percocet 10 mg as she states that no other pain medication helps with her pain. Per CT and PNP patient has no outstanding narcotic prescriptions currently. Patient has an orthopedic doctor whom she can follow-up within the next week or so. She is able to ambulate leaving the emergency department. The patient agrees with the plan of care. Low suspicion for acute cauda equina syndrome given no paresthesias or saddle anesthesia or urinary incontinence. Diagnostic Imaging: Viewed by Me: Radiology Read. Discussed w/RAD: Radiology Read. Radiology Impression: PATIENT: STEVE STEELE PRESENT AGE: 62 PATIENT ACCOUNT NO: [id number] : 54 LOCATION: [facility] ORDERING PHYSICIAN: Jarocho Howard DO (TBS) SERVICE DATE: 06/21/18- EXAM TYPE : RAD - XRY-LUMBOSACRAL SPINE 4 VIEWS EXAMINATION: XR LUMBAR SPINE CLINICAL INFORMATION: Pain after lifting COMPARISON: None TECHNIQUE: Frontal lateral and coned-down L5-S1 frontal lateral FINDINGS: Five [id number] lumbar vertebrae were identified maintaining normal height and alignments. Posterior fusion of L4 on L5 with rods and screws remain in place properly positioned. No radiographic evidence of device failure. Narrowing of intervertebral disc spaces suggest underlying degenerative disc disease. Paravertebral soft tissues are unremarkable. There is superimposed bowel gas. No radiographic evidence of osteolytic or osteoblastic lesions. IMPRESSION: 1. No fractures. 2. Degenerative disc disease at all levels. 3. Hardware posterior fusion L5-S1 in place properly positioned. No radiographic evidence of device failure. DICTATED BY: Syed Vu MD DATE/TIME DICTATED:06/21/181927 SOFT CRAB SHEDDER:DOLLY DATE/TIME TRANSCRIBED:06/21/181927 CONFIDENTIAL, DO NOT COPY WITHOUT APPROPRIATE AUTHORIZATION. <Electronically signed in Other Vendor System> SIGNED BY: Syed Vu MD 06/21/181933 (Chana Hunt) Departure Departure Disposition: HOME OR SELF CARE Condition: Stable Clinical Impression Primary Impression: Back pain Qualifiers: Back pain location: low back pain Chronicity: acute Back pain laterality: midline Referrals: Alfredo Gallegos MD (PCP/Family) Additional Instructions: Follow up with your specialist regarding your worsening back pain. Take percocet as prescribed as needed for pain. Return if you have any worsening symptoms or concerns. Please note that there might be incidental findings in your evaluation that are unrelated to the current emergency department visit. Please notify your primary care doctor about this emergency department visit in order to obtain and review all of the testing performed so that these incidental findings can be monitored as needed. If you had an x-ray performed, please understand that some fractures may not be seen on the initial set of x-rays. If your symptoms persist you might need a repeat set of x-rays to check for such a fracture. If you had a laceration evaluated, please understand that foreign bodies such as glass or wood may not be visible to the naked eye or on plain x-rays. If the wound becomes red, swollen, increasingly more painful or if there is any drainage from the wound, please have it reevaluated by a physician for the possibility of a retained foreign body. If you're unable to follow up as outlined in the discharge instructions please return to the emergency department. Thank you for choosing the [facility] Emergency Department for your care. It was a pleasure to serve you today. Departure Forms: Customer Survey General Discharge Information Prescriptions: Current Visit Scripts Oxycodone HCl/Acetaminophen (Percocet 10-325 MG Tablet) 1 TAB PO BID PRN pain #10 TAB (Airam FIORE,Chana Strauss) PA/LIQUOR RECTIFIER Co-Sign Statement Statement: ED Attending supervision documentation- [] I saw and evaluated the patient. I have also reviewed all the pertinent lab results and diagnostic results. I agree with the findings and the plan of care as documented in the PA's/LIQUOR RECTIFIER's documentation. [x] I have reviewed the ED Record and agree with the PA's/LIQUOR RECTIFIER's documentation. [] Additions or exceptions (if any) to the PAs/LIQUOR RECTIFIER's note and plan are summarized below: [] (Bertram MCCARTHY,Sidney Scott)
[2018-06-21] MEDS ORDERED: PERCOCET 10-321 EACH PO (21:08)
== END 2018-06-21 21:33 ==
LOC: ERH 18:01
DX: M54.5 Low back pain (principal)
CPT/HCPCS: 72110; 96372; J1885